=== PATIENT | male | born 1945 | race Caucasian/White ===

== ENCOUNTER → 2016-07-17 | Day surgery (SDC) | payer MEDICARE, OTHER ==
[~2016-07-17] VITALS: Ht 172.7 cm; Wt 76.6 kg
[~2016-07-17] MED LIST: FLOMAX0.4 MG PO; PERCOCET 5-3251 EACH PO
--- NOTE | ~2016-07-17 | OR ---
PATIENT'S NAME: DEV WAYNE [facility] AGE: 70 Y [address] ROOM: [place] [id number] LOCATION: [facility] [place] DATE: 07/17/2016 OR/Procedure Report DISCHARGE DATE: FAMILY PHYSICIAN: ONEYDA AUGUSTE ATTENDING PHYSICIAN: Aminah Jacob SURGEON: Aminah Jacob MD LOSS CONTROL CONSULTANT: DATE OF PROCEDURE: 07/17/2016 PREOPERATIVE DIAGNOSIS: Right spermatocele. POSTOPERATIVE DIAGNOSIS: Right spermatocele. PROCEDURE PERFORMED: Excision of hematocele and epididymis. DESCRIPTION OF PROCEDURE: After adequate anesthesia, he was prepped and draped. An incision was made in the right hemiscrotal area in the right testicle, and the spermatocele was exposed into the surgical field. The spermatocele was completely involved the epididymis. With careful dissection, the cord structures were dissected off the spermatocele and spermatocele was dissected off the upper pole of the testicle, and then the spermatocele and epididymis were removed. The epididymis was ligated with 3-0 Vicryl. Small bleeding was controlled. The testicle was placed back in its normal anatomical position and incision was closed with 3-0 Vicryl and the skin with a 3-0 plain. He tolerated the procedure fine. AMINAH JACOB MD EKL/modl /[id number] d: 07/17/16 1308 t: 07/19/16 0441, OPERATIVE SUMMARY
--- NOTE | ~2016-07-17 | HP ---
PATIENT'S NAME: DEV WAYNE [facility] AGE: 70 Y [address] ROOM: [place] [address] LOCATION: [facility] [place] ADMIT DATE: 07/17/2016 History & Physical DISCHARGE DATE: FAMILY PHYSICIAN: ONEYDA AUGUSTE ATTENDING PHYSICIAN: Aminah Jacob DATE OF SERVICE: HISTORY: A 71-year-old male who has an enlarging right hemiscrotal mass which on examination is a spermatocele. He has had this for several years, but over the past 6 months, it has increased in size significantly and now causes him discomfort to the point where he wants that removed. He does have some symptoms of BPH, which has been controlled very nicely on tamsulosin 0.4 mg every night. PAST MEDICAL HISTORY: Illnesses: Hypothyroidism. ALLERGIES: NONE KNOWN. OPERATIONS: None. PHYSICAL EXAMINATION: GENERAL: A well-developed, well-nourished male. VITAL SIGNS: 130/84, 171 pounds. CHEST: Clear. HEART: Normal sinus rhythm. ABDOMEN: Soft with no palpable masses or tenderness. : Normal penis. He has a large right cyst filling the right hemiscrotum. Testicles are of normal size and normal to palpation. Prostate is enlarged, smooth, symmetrical, and benign to palpation. RECTAL: Negative. IMPRESSION: Spermatocele, right. PLAN: Excision of spermatocele. PATIENT'S NAME: DEV WAYNE [facility] AGE: 70 Y [address] ROOM: [place] [address] LOCATION: [facility] [place] ADMIT DATE: 07/17/2016 History & Physical DISCHARGE DATE: FAMILY PHYSICIAN: PHYSICIAN, ONEYDA ATTENDING PHYSICIAN: Aminah Jacob AMINAH JACOB MD EKL/modl /[id number] D: T: HISTORY & PHYSICAL
[2016-07-17 09:32] LABS: BASOPHIL % 0.2 %; EOSINOPHIL # 0.1 K/uL (0.0-0.5); EOSINOPHIL % 1.3 %; HEMATOCRIT 45.2 % (37.0-53.0); HEMOGLOBIN 15.5 g/dL (11.0-16.0); LYMPHOCYTE # 1.9 K/uL (0.8-4.0); LYMPHOCYTE % 34.9 %; MCH 29.6 pg (27.0-34.0); MCHC 34.3 gm/dL (32.0-36.5); MCV 86.4 fl (83.0-98.0); MONOCYTE # 0.5 K/uL (0.0-1.0); MONOCYTE % 9.1 %; MPV 10.3 fl (9.4-12.4); NEUTROPHIL % 54.5 %; NRBC % 0 /100WBC (0-0.00); PLATELET COUNT 192 K/uL (150-450); RBC 5.23 M/uL (3.50-5.50); WBC 5.5 K/uL (4.0-11.0)
== END ==
LOC: GPOC 08:30 → EDSTATUS 08:30 → GSDC 08:33
PROVIDERS: Urology
PROC: 0VBJ0ZZ Excision of Right Epididymis, Open Approach (ICD-10-PCS; principal; 2016-07-17)
DX: N43.40 Spermatocele of epididymis, unspecified (principal); E03.9 Hypothyroidism, unspecified; Z79.899 Other long term (current) drug therapy
CPT/HCPCS: J2001; J7030